=== PATIENT | male | born 1965 | race Asian ===

== ENCOUNTER 2016-12-03 05:57 | Day surgery (SDC) | payer OTHER ==
[~2016-12-03] VITALS: Ht 157.5 cm; Wt 45.5 kg
[~2016-12-03 05:57] MED LIST: ALBU90AE IH; DOXY100C40 PO; FLUT16H NASAL; MOME13HF IH; MONT10TA21 PO; OMEP20 PO; PRED20 PO
[2016-12-03] MEDS ORDERED: SODIUM CHLORIDE 0.9% 1,000 ML IV ONE ×2 (06:15→14:20)
[2016-12-03] MEDS ORDERED: MethylPREDNISolone SOD SUCC 125 MG/2 ML VIAL IVP ONE (08:30)
[2016-12-03] MEDS ORDERED: FentaNYL CITRATE-PF 100 MCG/2 ML VIAL ONE (14:20)
[2016-12-03] MEDS ORDERED: MIDAZOLAM HCL 2 MG/2 ML VIAL ONE (14:20)
[2016-12-03] MEDS ORDERED: MethylPREDNISolone SOD SUCC 125 MG/2 ML VIAL ONE (14:22)
[2016-12-03] MEDS ORDERED: ALBUTEROL SULFATE 2.5 MG/0.5 ML NEB SOLUTION NEB ONE (16:49)
[2016-12-03] MEDS ORDERED: BENZOCAINE 20% 50 MCG/SPRAY 57 GM TP ONE (16:49)
[2016-12-03] MEDS ORDERED: LIDOCAINE HCL 4% 50 ML SOLUTION TP ONE (16:49)
[2016-12-03] MEDS ORDERED: LIDOCAINE HCL 2% 5 ML JELLY TP ONE (16:49)
[2016-12-03] MEDS ORDERED: LIDOCAINE HCL 2% 30 ML JELLY TP ONE (16:49)
[2016-12-03] MEDS ORDERED: OXYGEN THERAPY IH SCH (20:00)
== END 2016-12-03 09:55 | disposition home or self-care (01) ==
LOC: SURGERY 05:57
PROVIDERS: ATTEND Internal Medicine Critical Care Medicine
DX: J38.4 Edema of larynx (principal); B37.0 Candidal stomatitis; J45.909 Unspecified asthma, uncomplicated; F17.210 Nicotine dependence, cigarettes, uncomplicated; Z98.890 Other specified postprocedural states
CPT/HCPCS: 31623; 31624; 71010; 87015 ×2; 87070; 87101; 87147; 87205; 87220; 88108; 88312; 94640; J2250; J2930; J3010; J7030